=== PATIENT | male | born 1945 | race Caucasian/White ===

== ENCOUNTER 2024-05-14 13:49 | Inpatient (IN) | payer MEDICARE, OTHER ==
[~2024-05-14] VITALS: Ht 177.8 cm; Wt 46.7 kg
[2024-05-14] MEDS: SODIUM CHLORIDE 0.9% 1,000 ML IV ONE ×2 (14:30→15:30)
[2024-05-14 14:32] LABS: Basophils # (auto) 0 10 ^3/uL (0-0.2); Eosinophils # (auto) 0.2 10 ^3/uL (0-0.8); Hemoglobin 12.6 g/dL (13.5-17.5); Mean Corpuscular Volume 82.3 fL (80.0-100.0); Monocytes # (auto) 0.3 10 ^3/uL (0-1.3); White Blood Cell 6.1 10^3/uL (4.4-10.8)
[2024-05-14 14:35] LABS: Basophils % (auto) 0.6 % (0.0-2.0); Eosinophils % (auto) 3.4 % (0.0-7.0); Lymphocytes # (auto) 0.9 10 ^3/uL (0.4-5.4); Lymphocytes % (auto) 14.1 % (10.0-50.0); Mean Corpuscular Hemoglobin 26.5 pg (28.0-32.0); Mean Corpuscular Hgb Conc. 32.3 g/dL (32.0-36.0); Monocytes % (auto) 4.9 % (0.0-12.0); Neutrophils # (auto) 4.7 10 ^3/uL (1.6-8.6); Platelet Count (auto) 349 10^3/uL (140-450); Red Blood Cells 4.74 10^6/uL (4.5-5.90); Red Cell Distribution Width 17.9 % (11.8-14.3)
[2024-05-14 14:41] LABS: Chloride 107 mmol/L (98-107); Sodium 139 mmol/L (136-145)
[2024-05-14 14:42] LABS: Anion Gap 8 (5-15); Calcium 8.6 mg/dL (8.7-10.4); Carbon Dioxide 24 mmol/L (20-30)
[2024-05-14 14:47] LABS: BUN/Creatinine Ratio 18.8 (10.0-20.0); Blood Urea Nitrogen 13 mg/dL (9-23); Glucose 65 mg/dL (74-106)
[2024-05-14 14:49] LABS: Creatine Kinase IFCC 261 U/L (46-171)
[2024-05-14] MEDS: SODIUM BICARB 8.4% 50Meq/50ml SYR Vial IV ONE (15:30)
[2024-05-14] MEDS ORDERED: ONDANSETRON HCL 4 MG/2 ML VIAL IV PRN (18:15)
[2024-05-14] MEDS ORDERED: DOCUSATE SOD 100 MG CAP PO PRN (18:15)
[2024-05-14] MEDS ORDERED: LACTATED RINGER'S 1,000 ML IV ONE (18:15)
[2024-05-14 20:02] VITALS: PULSE 51; RESP 16; O2SAT 98
[2024-05-14] MEDS: D5W/LACTATED RINGERS 1,000 ML IV ONE (20:12)
[2024-05-14] MEDS ORDERED: PRE5T PO (20:55)
[2024-05-14] MEDS ORDERED: NAP500T PO (20:55)
[2024-05-14] MEDS ORDERED: PAR20T PO (20:55)
[2024-05-14 20:56] VITALS: PULSE 51; RESP 18; O2SAT 100
[2024-05-14 21:36] VITALS: BP 106/39; PULSE 51; RESP 18; TEMP 97.6; O2SAT 100
[2024-05-14] MEDS: SODIUM CHLOR 0.9% PF (SALINE LOCK) 10ML VIAL/SYR IV SCH (22:00)
[2024-05-15] VITALS (8 sets, daily range): BP systolic 104–143; BP diastolic 54–88; PULSE 52–64; RESP 16–20; TEMP 97.7–98.3; O2SAT 95–100
[2024-05-15] MEDS: ENOXAPARIN SOD 40 MG/0.4 ML SYRINGE SC SCH (08:33)
[2024-05-15 09:01] LABS: Chloride 112 mmol/L (98-107); Potassium 3.6 mmol/L (3.5-5.1); Sodium 143 mmol/L (136-145)
[2024-05-15 09:02] LABS: Anion Gap 6 (5-15); Calcium 7.9 mg/dL (8.7-10.4); Carbon Dioxide 25 mmol/L (20-30)
[2024-05-15 09:07] LABS: BUN/Creatinine Ratio 14.8 (10.0-20.0); Blood Urea Nitrogen 9 mg/dL (9-23); Glucose 95 mg/dL (74-106)
[2024-05-15] MEDS: SODIUM CHLORIDE 0.9% 1,000 ML IV SCH (13:00)
[2024-05-15] MEDS: POTASSIUM CHL 20MEQ/100ML 100 ML IV ONE (15:37)
[2024-05-15] MEDS: CHOLECALCIFEROL (VITD3) 1,000UNIT=25mCg TAB PO ONE (15:37)
[2024-05-15] MEDS: CYANOCOBALAMIN (B-12) 1000 MCG/1 ML VIAL IM ONE (16:00)
[2024-05-15] MEDS: ACETAMINOPHEN 325 MG TAB PO PRN (21:16)
[2024-05-16] VITALS (8 sets, daily range): BP systolic 91–116; BP diastolic 41–69; PULSE 48–88; RESP 15–20; TEMP 97.3–98.3; O2SAT 96–99
[2024-05-16] MEDS: MELATONIN 5 MG TAB PO SCH (00:37)
[2024-05-16 06:33] LABS: Chloride 111 mmol/L (98-107); Potassium 3.8 mmol/L (3.5-5.1); Sodium 142 mmol/L (136-145)
[2024-05-16 06:34] LABS: Anion Gap 5 (5-15); Calcium 8.2 mg/dL (8.7-10.4); Carbon Dioxide 26 mmol/L (20-30)
[2024-05-16 06:39] LABS: BUN/Creatinine Ratio 13.4 (10.0-20.0); Blood Urea Nitrogen 9 mg/dL (9-23); Creatine Kinase IFCC 177 U/L (46-171); Glucose 88 mg/dL (74-106)
[2024-05-16] MEDS: CHOLECALCIFEROL (VITD3) 1,000UNIT=25mCg TAB PO SCH (10:00)
[2024-05-16] MEDS: ENOXAPARIN SOD 40 MG/0.4 ML SYRINGE SC SCH (18:00)
[2024-05-16] MEDS ORDERED: MELATONIN 5 MG TAB PO SCH (22:00)
[2024-05-17] VITALS (7 sets, daily range): BP systolic 101–112; BP diastolic 49–58; PULSE 48–57; RESP 16–20; TEMP 97.9–98.2; O2SAT 94–99
[2024-05-17 06:33] LABS: Basophils # (auto) 0 10 ^3/uL (0-0.2); Basophils % (auto) 0.3 % (0.0-2.0); Eosinophils # (auto) 0.2 10 ^3/uL (0-0.8); Eosinophils % (auto) 3.1 % (0.0-7.0); Hematocrit 33.1 % (41.0-53.0); Lymphocytes % (auto) 16.6 % (10.0-50.0); Mean Corpuscular Hemoglobin 27.2 pg (28.0-32.0); Mean Corpuscular Hgb Conc. 33.3 g/dL (32.0-36.0); Mean Corpuscular Volume 81.7 fL (80.0-100.0); Monocytes # (auto) 0.4 10 ^3/uL (0-1.3); Monocytes % (auto) 6.2 % (0.0-12.0); Neutrophils # (auto) 4.4 10 ^3/uL (1.6-8.6); Neutrophils % (auto) 73.8 % (37.0-80.0); Nucleated Red Blood Cells % 0.1 %; Platelet Count (auto) 290 10^3/uL (140-450); Red Blood Cells 4.05 10^6/uL (4.5-5.90); Red Cell Distribution Width 17.5 % (11.8-14.3)
[2024-05-17 06:36] LABS: Chloride 110 mmol/L (98-107); Potassium 4.1 mmol/L (3.5-5.1); Sodium 141 mmol/L (136-145)
[2024-05-17 06:37] LABS: Anion Gap 5 (5-15); Calcium 8.3 mg/dL (8.7-10.4); Carbon Dioxide 26 mmol/L (20-30)
[2024-05-17 06:42] LABS: BUN/Creatinine Ratio 13.8 (10.0-20.0); Blood Urea Nitrogen 9 mg/dL (9-23); Glucose 89 mg/dL (74-106)
[2024-05-17 06:43] LABS: Creatine Kinase IFCC 147 U/L (46-171)
[2024-05-18 04:43] VITALS: BP 108/55; PULSE 53; RESP 18; TEMP 98.3; O2SAT 97
[2024-05-18 09:20] VITALS: BP 101/69; PULSE 59; RESP 17; TEMP 97.6; O2SAT 96
[2024-05-18 12:45] VITALS: BP 109/61; PULSE 60; RESP 19; TEMP 98.4; O2SAT 94
[2024-05-18 16:56] VITALS: BP 108/55; PULSE 61; RESP 19; TEMP 98.1; O2SAT 95
[2024-05-18 21:00] VITALS: BP 102/54; PULSE 58; RESP 18; TEMP 98.4; O2SAT 95
[2024-05-18] MEDS: CYANOCOBALAMIN (B-12) 1000 MCG/1 ML VIAL IM ONE (22:09)
[2024-05-19 01:00] VITALS: BP 121/63; PULSE 50; RESP 18; TEMP 97.7; O2SAT 96
[2024-05-19 05:45] VITALS: BP 116/59; PULSE 50; RESP 18; TEMP 97.8; O2SAT 97
[2024-05-19 09:00] VITALS: BP 100/54; PULSE 62; RESP 16; TEMP 97.7; O2SAT 97
[2024-05-19] MEDS: CYANOCOBALAMIN 500 MCG TAB PO SCH (10:02)
[2024-05-19 13:00] VITALS: BP 99/49; PULSE 54; RESP 16; TEMP 98.5; O2SAT 95
[2024-05-19 17:00] VITALS: BP 99/50; PULSE 55; RESP 16; TEMP 98.1; O2SAT 98
[2024-05-19 22:00] VITALS: BP 104/56; PULSE 52; RESP 16; TEMP 98.8; O2SAT 95
[2024-05-20] VITALS (7 sets, daily range): BP systolic 92–112; BP diastolic 45–62; PULSE 52–81; RESP 16–18; TEMP 97.8–98.4; O2SAT 93–99
[2024-05-21 01:00] VITALS: BP 121/43; PULSE 48; RESP 15; TEMP 98.1; O2SAT 99
[2024-05-21 05:00] VITALS: BP 123/84; PULSE 60; RESP 15; TEMP 97.6; O2SAT 97
[2024-05-21 08:00] VITALS: PULSE 95; RESP 18; O2SAT 95
[2024-05-21 16:50] VITALS: BP 115/49; PULSE 63; RESP 18; TEMP 97.3; O2SAT 98
[2024-05-22 01:00] VITALS: BP 111/61; PULSE 61; RESP 18; TEMP 97.7; O2SAT 98
[2024-05-22 05:00] VITALS: BP 113/53; PULSE 63; RESP 20; TEMP 98; O2SAT 99
[2024-05-22 09:00] VITALS: BP 103/56; PULSE 63; RESP 16; TEMP 97.8; O2SAT 99
[2024-05-22 13:00] VITALS: BP 114/72; PULSE 61; RESP 16; TEMP 97.7; O2SAT 99
[2024-05-22 17:00] VITALS: BP 110/63; PULSE 60; RESP 16; TEMP 98.1; O2SAT 99
[2024-05-22 21:06] VITALS: BP 101/46; PULSE 58; RESP 17; TEMP 98; O2SAT 97
[2024-05-22 21:49] LABS: Urine Bacteria None Seen /hpf (None Seen)
[2024-05-22 22:05] LABS: Urine Blood 3+ /uL (Negative); Urine Clarity Turbid (Clear); Urine Color Colorless (Yellow); Urine Mucus FEW (None Seen); Urine Protein, UAD TRACE (Negative); Urine Specific Gravity 1.009 (1.001-1.035); Urine Urobilinogen Normal (Negative); Urine WBC 175 /hpf (0 - 3); Urine pH 5.5 (5.0-9.0)
[2024-05-23 01:00] VITALS: BP 117/53; PULSE 64; RESP 17; TEMP 98.2; O2SAT 99
[2024-05-23 05:00] VITALS: BP 99/50; PULSE 53; RESP 17; TEMP 97.9; O2SAT 97
[2024-05-23 12:37] LABS: Basophils # (auto) 0 10 ^3/uL (0-0.2); Basophils % (auto) 0.5 % (0.0-2.0); Eosinophils # (auto) 0.1 10 ^3/uL (0-0.8); Eosinophils % (auto) 1.7 % (0.0-7.0); Hemoglobin 11.3 g/dL (13.5-17.5); Lymphocytes # (auto) 0.8 10 ^3/uL (0.4-5.4); Neutrophils # (auto) 5.2 10 ^3/uL (1.6-8.6); White Blood Cell 6.5 10^3/uL (4.4-10.8)
[2024-05-23 12:40] LABS: Hematocrit 34.8 % (41.0-53.0); Lymphocytes % (auto) 12.6 % (10.0-50.0); Mean Corpuscular Hemoglobin 26.8 pg (28.0-32.0); Mean Corpuscular Hgb Conc. 32.5 g/dL (32.0-36.0); Mean Corpuscular Volume 82.5 fL (80.0-100.0); Monocytes # (auto) 0.3 10 ^3/uL (0-1.3); Monocytes % (auto) 5.2 % (0.0-12.0); Platelet Count (auto) 340 10^3/uL (140-450); Red Blood Cells 4.22 10^6/uL (4.5-5.90); Red Cell Distribution Width 17.7 % (11.8-14.3)
[2024-05-23 12:52] LABS: Calcium 8.4 mg/dL (8.7-10.4); Chloride 106 mmol/L (98-107); Potassium 4.2 mmol/L (3.5-5.1); Sodium 139 mmol/L (136-145)
[2024-05-23 12:53] LABS: Anion Gap 4 (5-15); Carbon Dioxide 29 mmol/L (20-30)
[2024-05-23 12:58] LABS: BUN/Creatinine Ratio 15.2 (10.0-20.0); Blood Urea Nitrogen 12 mg/dL (9-23); Glucose 86 mg/dL (74-106)
[2024-05-23 13:00] VITALS: BP 100/50; PULSE 54; RESP 17; TEMP 98; O2SAT 98
[2024-05-23 17:00] VITALS: BP 107/59; PULSE 54; RESP 16; TEMP 98; O2SAT 98
[2024-05-23] MEDS: CYANOCOBALAMIN (B-12) 1000 MCG/1 ML VIAL IM ONE (17:12)
[2024-05-23 21:00] VITALS: BP 135/62; PULSE 65; RESP 18; TEMP 98; O2SAT 97
[2024-05-24 05:00] VITALS: BP 120/46; PULSE 52; RESP 18; TEMP 98; O2SAT 97
[2024-05-24 09:00] VITALS: BP 94/53; PULSE 54; RESP 18; TEMP 97.8; O2SAT 99
[2024-05-24] MEDS: cefTRIAXone 1GM/50ML D5W 50 ML IV ONE (11:44)
[2024-05-24 12:45] LABS: PSA Free 2.3 ng/mL; Prostate Specific Antigen 9.1 ng/mL (0.0-4.0)
[2024-05-24 13:00] VITALS: BP 98/58; PULSE 71; RESP 18; TEMP 98.2; O2SAT 97
[2024-05-24 17:00] VITALS: BP 92/50; PULSE 53; RESP 18; TEMP 98.6; O2SAT 95
[2024-05-25 05:00] VITALS: BP 105/56; PULSE 65; RESP 18; TEMP 97.8; O2SAT 100
[2024-05-25 08:06] LABS: PSA Free 2.87 ng/mL
[2024-05-25 09:00] VITALS: BP 111/62; PULSE 58; RESP 18; TEMP 97.8; O2SAT 97
[2024-05-25] MEDS: cefTRIAXone 1GM/50ML D5W 50 ML IV SCH (11:05)
[2024-05-25 13:00] VITALS: BP 108/56; PULSE 60; RESP 18; TEMP 98.1; O2SAT 97
[2024-05-25 17:00] VITALS: BP 119/78; PULSE 54; RESP 18; TEMP 98.2; O2SAT 98
[2024-05-25 21:00] VITALS: BP 103/52; PULSE 58; RESP 17; TEMP 97.8; O2SAT 96
[2024-05-26 05:00] VITALS: BP 99/48; PULSE 56; RESP 16; TEMP 98.1; O2SAT 97
[2024-05-26 08:31] VITALS: BP 102/61; PULSE 52; RESP 16; TEMP 97.6; O2SAT 99
[2024-05-26 13:09] VITALS: BP 111/63; PULSE 66; RESP 16; TEMP 98; O2SAT 97
[2024-05-26 16:49] VITALS: BP 111/54; PULSE 64; RESP 16; TEMP 98.4; O2SAT 97
[2024-05-26 20:00] VITALS: RESP 18
[2024-05-26 21:00] VITALS: BP 120/75; PULSE 61; RESP 17; TEMP 98.2; O2SAT 95
[2024-05-27] VITALS (8 sets, daily range): BP systolic 110–130; BP diastolic 64–75; PULSE 58–83; RESP 15–18; TEMP 97.6–98.6; O2SAT 94–99
[2024-05-28 01:00] VITALS: BP 117/61; PULSE 78; RESP 18; TEMP 97.5; O2SAT 97
[2024-05-28 05:00] VITALS: BP 107/58; PULSE 82; RESP 18; TEMP 97.8; O2SAT 95
[2024-05-28 08:00] VITALS: PULSE 76; RESP 16; O2SAT 96
[2024-05-28 09:00] VITALS: BP 108/60; PULSE 69; RESP 18; TEMP 99; O2SAT 95
[2024-05-28 13:00] VITALS: BP 88/51; PULSE 69; RESP 18; TEMP 98; O2SAT 92
[2024-05-28] MEDS ORDERED: SODIUM CHLORIDE 0.9% 250 ML IV ONE (14:15)
[2024-05-28 20:00] VITALS: PULSE 86; PULSE 87; O2SAT 96
[2024-05-29] VITALS (7 sets, daily range): BP systolic 107–114; BP diastolic 57–62; PULSE 68–92; RESP 16–22; TEMP 97–99.6; O2SAT 91–96
[2024-05-29 11:05] LABS: Basophils # (auto) 0 10 ^3/uL (0-0.2); Basophils % (auto) 0.1 % (0.0-2.0); Eosinophils # (auto) 0 10 ^3/uL (0-0.8); Hemoglobin 12.4 g/dL (13.5-17.5); Lymphocytes # (auto) 0.3 10 ^3/uL (0.4-5.4); Red Cell Distribution Width 17.3 % (11.8-14.3)
[2024-05-29 11:07] LABS: Hematocrit 38.1 % (41.0-53.0); Lymphocytes % (auto) 3.7 % (10.0-50.0); Mean Corpuscular Hemoglobin 26.9 pg (28.0-32.0); Mean Corpuscular Hgb Conc. 32.6 g/dL (32.0-36.0); Mean Corpuscular Volume 82.4 fL (80.0-100.0); Monocytes # (auto) 0.6 10 ^3/uL (0-1.3); Monocytes % (auto) 6.2 % (0.0-12.0); Neutrophils # (auto) 8.1 10 ^3/uL (1.6-8.6); Platelet Count (auto) 339 10^3/uL (140-450); Red Blood Cells 4.62 10^6/uL (4.5-5.90)
[2024-05-29 11:31] LABS: Alanine Aminotransferase 15 U/L (7-40); Albumin 3.6 g/dL (3.2-4.8); Alkaline Phosphatase 64 U/L (46-116); Anion Gap 3 (5-15); Aspartate Aminotransferase 15 U/L (13-40); BUN/Creatinine Ratio 32.4 (10.0-20.0); Bilirubin, Total 0.5 mg/dL (0.2-1.0); Blood Urea Nitrogen 23 mg/dL (9-23); Calcium 9.1 mg/dL (8.7-10.4); Carbon Dioxide 27 mmol/L (20-30); Chloride 99 mmol/L (98-107); Glucose 134 mg/dL (74-106); Magnesium 1.9 mg/dL (1.6-2.6); Potassium 4.3 mmol/L (3.5-5.1); Total Protein 5.9 g/dL (5.7-8.2)
[2024-05-29 11:32] LABS: Sodium 129 mmol/L (136-145)
[2024-05-30 00:45] VITALS: BP 109/63; PULSE 99; RESP 20; TEMP 99.4; O2SAT 90
[2024-05-30 02:20] LABS: Urine Bacteria None Seen /hpf (None Seen)
[2024-05-30 03:05] LABS: Urine Blood 3+ /uL (Negative); Urine Clarity Turbid (Clear); Urine Color Light-Orange (Yellow); Urine Mucus FEW (None Seen); Urine Protein, UAD 1+ (Negative); Urine Specific Gravity 1.028 (1.001-1.035); Urine Urobilinogen Normal (Negative); Urine WBC 3 /hpf (0 - 3); Urine pH 5.5 (5.0-9.0)
[2024-05-30 05:00] VITALS: BP 122/71; PULSE 100; RESP 20; O2SAT 92
[2024-05-30 08:00] VITALS: PULSE 84; RESP 22; O2SAT 96
[2024-05-30 08:58] VITALS: BP 108/61; PULSE 98; RESP 20; TEMP 97.2; O2SAT 92
[2024-05-30 13:00] VITALS: BP 108/62; PULSE 86; RESP 24; TEMP 100.1; O2SAT 100
[2024-05-30 17:00] VITALS: BP 112/53; PULSE 84; RESP 26; TEMP 98.5; O2SAT 100
== END 2024-05-30 18:44 | disposition hospice, home (50) | DRG 82 ==
LOC: EDBD 13:49 → ER 13:49 → EDUNIT# 13:49 → OVERFLOW 18:14 → EAST 20:45 → CENTRAL 05-20 11:47
PROVIDERS: ADMIT Internal Medicine Geriatric Medicine; ATTEND Emergency Medicine
DX: S06.5XAA Traumatic subdural hemorrhage with loss of consciousness status unknown, initial encounter (principal); E43 Unspecified severe protein-calorie malnutrition; M62.82 Rhabdomyolysis; G96.08 Other cranial cerebrospinal fluid leak; Z68.1 Body mass index [BMI] 19.9 or less, adult; E86.0 Dehydration; E16.2 Hypoglycemia, unspecified; M43.16 Spondylolisthesis, lumbar region; D18.1 Lymphangioma, any site; E87.6 Hypokalemia; E53.8 Deficiency of other specified B group vitamins; R54 Age-related physical debility; E55.9 Vitamin D deficiency, unspecified; F12.10 Cannabis abuse, uncomplicated; F32.A Depression, unspecified; Z83.3 Family history of diabetes mellitus
CPT/HCPCS: 36415; 70450; 70551; 71045; 72131; 76856; 80048; 80053; 81001; 82140; 82306; 82550; 82607; 82746; 82962; 83036; 83605; 83735; 84154; 84443; 84484; 85025; 87086; 93005; 93306; 97110; 97116; 97163; 97164; 97530; 99291; G0378; J3480